=== PATIENT | male | born 1965 | race Hispanic/Latino ===

== ENCOUNTER 2017-07-13 02:43 | Emergency (ER) | payer BC ==
[2017-07-13 02:44] VITALS: BMI 31.0
--- NOTE | 2017-07-13 03:09 | ED PDOC ---
Arrival/HPI - General Chief Complaint: Back Pain Time Seen by Provider: 07/13/17 02:47 Historian: Patient - History of Present Illness Narrative History of Present Illness (Text): 07/13/17 03:06 Neeraj Thomas is a 52 year old male who presents to the Emergency department complaining of back pain. Patient states he has been experiencing right lower back pain radiating down his right leg since yesterday. Patient notes pain is worsened with movement. Patient denies any fever, chills, nausea, vomiting, diarrhea, urinary symptoms, urinary/bowel incontinence, saddle paresthesias, headache, dizziness, or any other complaints. Time/Duration: Other (yesterday) Symptom Onset: Gradual Symptom Course: Unchanged Activities at Onset: Rest, Light Context: Walking, Home Past Medical History - Provider Review Nursing Documentation Reviewed: Yes - Infectious Disease Hx of Infectious Diseases: None - HEENT Other/Comment: Hearing loss, wears hearing aids - Psychiatric Hx Depression: No Hx Emotional Abuse: No Hx Physical Abuse: No Hx Substance Use: No - Suicidal Assessment Feels Threatened In Home Enviroment: No Family/Social History - Physician Review Nursing Documentation Reviewed: Yes Family/Social History: Unknown Family HX Smoking Status: Never Smoked Hx Alcohol Use: No Hx Substance Use: No Hx Substance Use Treatment: No Allergies/Home Meds Allergies/Adverse Reactions: Allergies No Known Allergies Allergy (Verified 05/05/12 14:49) Review of Systems - Physician Review All systems were reviewed & negative as marked: Yes - Review of Systems Constitutional: Normal. absent: Fevers Eyes: Normal ENT: Normal Respiratory: Normal. absent: SOB, Cough Cardiovascular: Normal. absent: Chest Pain Gastrointestinal: Normal. absent: Abdominal Pain, Diarrhea, Nausea, Vomiting Genitourinary Male: Normal. absent: Dysuria, Frequency, Hematuria, Urinary Output Changes Musculoskeletal: Back Pain (+lower back pain). absent: Neck Pain Skin: Normal. absent: Rash Neurological: Normal. absent: Headache, Dizziness Endocrine: Normal Hemo/Lymphatic: Normal Psychiatric: Normal Physical Exam Vital Signs Reviewed: Yes Vital Signs Temp Pulse Resp BP Pulse Ox 07/13/17 02:44 98.3 F 88 18 116/76 98 Temperature: Afebrile Blood Pressure: Normal Pulse: Regular Respiratory Rate: Normal Appearance: Positive for: Well-Appearing, Non-Toxic, Comfortable Pain Distress: None Mental Status: Positive for: Alert and Oriented X 3 - Systems Exam Head: Present: Atraumatic, Normocephalic Pupils: Present: PERRL Extroacular Muscles: Present: EOMI Conjunctiva: Present: Normal Mouth: Present: Moist Mucous Membranes Neck: Present: Normal Range of Motion Respiratory/Chest: Present: Clear to Auscultation, Good Air Exchange. No: Respiratory Distress, Accessory Muscle Use Cardiovascular: Present: Regular Rate and Rhythm, Normal S1, S2. No: Murmurs Abdomen: Present: Normal Bowel Sounds. No: Tenderness, Distention, Peritoneal Signs Genitourinary Male: No: Prostate Tenderness Back: Present: Paraspinal Tenderness (Right-sided paravertebral tenderness). No : Midline Tenderness Upper Extremity: Present: Normal Inspection. No: Cyanosis, Edema Lower Extremity: Present: Normal Inspection. No: Edema Neurological: Present: GCS=15, CN II-XII Intact, Speech Normal Skin: Present: Warm, Dry, Normal Color. No: Rashes Psychiatric: Present: Alert, Oriented x 3, Normal Insight, Normal Concentration Medical Decision Making ED Course and Treatment: 07/13/17 03:00 Impression: 52 year old male complaining of right lower back pain radiating down his right leg. Differential Diagnosis included but are not limited to: sciatica vs. musculoskeletal pain Plan: -- CT Lumbar Spine w/o contrast -- Flexeril -- Toradol -- Reassess and disposition Progress Notes: 07/13/17 04:10 Reviewed radiology, CT Lumbar Spine shows: Vertebrae: No acute fracture. Minimal degenerative anterolisthesis of L4 on L5. Minimal degenerative retrolithesis of L5 on S1. Facet osteoarthrosis within lower lumbar spine. Discs/spinal canal/neural foramina: Severe degenerative disc disease at L5-S1 level. Mild disc herniation at L5-S1 level. No significant central canal stenosis. Neuroforaminal narrowing at L5-S1 level. Soft tissues: Unremarkable. IMPRESSION: 1. No fracture. 2. If back pain persists, consider MRI for further evaluation. 3. Incidental/non-acute findings are described above. 07/13/17 04:22 On reevaluation the patient feels better and is in no acute distress. I have discussed the results and plan with the patient, who expresses understanding. Patient given the opportunity to ask question, all questions were answered and there is agreement with the plan to discharge the patient home. Patient is stable for discharge. Patient was instructed to follow up with physician/clinic in 1-2 days or return if symptoms persist/worsen or new concerning symptoms arise. Re-evaluation Time: :22 Reassessment Condition: Re-examined, Improved - RAD Interpretation Radiology Orders: 07/13/17 03:04 LUMBAR SPINE W/O CONTRAST [CT] Stat - Medication Orders Current Medication Orders: Discontinued Medications Cyclobenzaprine HCl (Flexeril) 10 mg PO STAT STA Stop: 07/13/17 03:04 Last Admin: 07/13/17 03:17 Dose: 10 mg Ketorolac Tromethamine (Toradol) 30 mg IM ONCE ONE Stop: 07/13/17 03:04 Last Admin: 07/13/17 03:18 Dose: 30 mg - Scribe Statement The provider has reviewed the documentation as recorded by the Marisel Byrd Provider Scribe Attestation: All medical record entries made by the Scribe were at my direction and personally dictated by me. I have reviewed the chart and agree that the record accurately reflects my personal performance of the history, physical exam, medical decision making, and the department course for this patient. I have also personally directed, reviewed, and agree with the discharge instructions and disposition. Disposition/Present on Arrival - Present on Arrival Any Indicators Present on Arrival: No History of DVT/PE: No History of Uncontrolled Diabetes: No Urinary Catheter: No History of Decub. Ulcer: No History Surgical Site Infection Following: None - Disposition Have Diagnosis and Disposition been Completed?: Yes Diagnosis: Lumbar radiculopathy, acute Disposition: HOME/ ROUTINE Disposition Time: 04:22 Condition: GOOD Discharge Instructions (ExitCare): Lumbar Radiculopathy (ED) Prescriptions: Cyclobenzaprine [Cyclobenzaprine HCl] 10 mg PO TID #21 tab Naproxen [Naprosyn Tab] 375 mg PO BID #12 tab Referrals: Manuela Vera MD [Primary Care Provider] - Follow up with primary Forms: [employer] (Lithuanian)
[2017-07-13 03:46] VITALS: BP 116/76; PULSE 88; RESP 18; TEMP 98.3; O2SAT 98
--- NOTE | 2017-07-13 03:57 | CT ---
EXAM: CT Lumbar Spine Without Intravenous Contrast CLINICAL HISTORY: 52 years old, male; Pain; Low back pain; Additional info: Lower back pain TECHNIQUE: Axial computed tomography images of the lumbar spine without intravenous contrast. All CT scans at this facility use one or more dose reduction techniques, viz.: automated exposure control; ma/kV adjustment per patient size (including targeted exams where dose is matched to indication; i.e. head); or iterative reconstruction technique. Coronal and sagittal reformatted images were created and reviewed. COMPARISON: No relevant prior studies available. FINDINGS: Vertebrae: No acute fracture. Minimal degenerative anterolisthesis of L4 on L5. Minimal degenerative retrolithesis of L5 on S1. Facet osteoarthrosis within lower lumbar spine. Discs/spinal canal/neural foramina: Severe degenerative disc disease at L5-S1 level. Mild disc herniation at L5-S1 level. No significant central canal stenosis. Neuroforaminal narrowing at L5-S1 level. Soft tissues: Unremarkable. IMPRESSION: 1. No fracture. 2. If back pain persists, consider MRI for further evaluation. 3. Incidental/non-acute findings are described above.
== END 2017-07-13 04:29 | disposition home or self-care (01) ==
LOC: ED 02:43
DX: M54.16 Radiculopathy, lumbar region (principal)
CPT/HCPCS: 72131; 96372; 99283; J1885